=== PATIENT | male | born 1955 | race Caucasian/White ===

== ENCOUNTER 2019-05-16 21:57 | Inpatient (IN) | payer OTHER ==
[~2019-05-16] VITALS: Ht 172.7 cm; Wt 53.6 kg
--- NOTE | ~2019-05-16 | EEG ---
[facility] [place] [address] ELECTROENCEPHALOGRAM Name: MICHOACANO LI Room #: 362-P [facility] M.R.#: [id number] Admission: 05/17/19 Attend Phys: Jayla Hsu MD Discharge: Date of : 55 Report #: [id number] THIS REPORT FOR: //name// CC: Jayla Garza DATE OF SERVICE: 05/18/2019 This patient is being evaluated for the possibility of seizure. EEG was done by placing the electrode by standard 10-20 system of electrode placement. Both referential and sequential montages were used for recording. Background activity in this patient's EEG is about 8 Hz and 30 microvolt. It is intermixed with theta range slowing on both sides. Photic stimulation is unremarkable. The patient went to sleep and that is associated with bilateral slowing and vertex sharp waves. Throughout the record, no active epileptiform activity was noticed. IMPRESSION: This patient's EEG is intermixed with theta range slowing on both sides. That is a nonspecific abnormality, which can occur with encephalopathy, effect of psychotropic medication, dementia, etc. Clinical correlation is recommended. By: [id number] Hany Israel MD /nt
--- NOTE | ~2019-05-16 | EKG ---
[facility] [place] [address] ELECTROCARDIOGRAM REPORT Name: GUILLERMOMICHOACANO Room #: [facility] M.R.#: [id number] Admission: Attend Phys: Discharge: Date of : 55 Report #: [id number] THIS REPORT FOR: cc: Gustabo Montejo MD ~ THIS REPORT FOR: //name// [facility] ED Test Date: 2019-05-16 Test Time: 22:09:15 Pat Name: MICHOACANO LI Department: Room: Gender: M Mobile Ui/Ux Designer: matthew : 1955 Requested By: Matthew Lantigua Order Number: [id number] MD: Measurements Intervals [place] Rate: 90 P: 62 AK: 150 QRS: 53 QRSD: 150 T: 32 QT: 394 QTc: 482 Interpretive Statements Sinus rhythm Probable left atrial enlargement Right bundle branch block LVH by voltage Borderline prolonged QT interval No previous ECG available for comparison [email or web address] By: 08 08 Gustabo Montejo MD /EPI
[2019-05-16 22:21] VITALS: BP 168/94
[2019-05-16 22:54] LABS: HEMATOCRIT 47.3 % (42.0-52.0); HEMOGLOBIN 14.7 gm/dL (14.0-18.0); MCV 103.3 fL (80.0-100.0); PLATELET COUNT 178 thou/uL (150-400); RBC 4.58 mil/uL (4.50-6.00); RDW 15.3 % (10.5-14.5); WBC 22.1 thou/uL (4.0-11.0)
[2019-05-16 23:08] LABS: ALBUMIN 3.5 g/dL (3.4-5.0); CALCIUM 6.7 mg/dL (8.5-10.1); CREATININE 0.7 mg/dL (0.7-1.3); POTASSIUM 3.2 mmol/L (3.5-5.1); TOTAL BILIRUBIN 0.4 mg/dL (<0.1-1.0); TOTAL PROTEIN 6.1 g/dL (6.4-8.2)
[2019-05-16 23:09] LABS: URINE BILIRUBIN NEGATIVE (Negative); URINE BLOOD TRACE (Negative); URINE CLARITY CLEAR; URINE COLOR YELLOW; URINE GLUCOSE-RANDOM* NEGATIVE (Negative); URINE KETONES NEGATIVE (Negative); URINE LEUKOCYTES-REFLEX TRACE (Negative); URINE PROTEIN (DIPSTICK) TRACE (Negative); URINE SPECIFIC GRAVITY 1.025 (1.005-1.035); URINE UROBILINOGEN 0.2 E.U./dl (0.2-1.0)
[2019-05-16 23:13] LABS: URINE NITRITE-REFLEX POSITIVE (Negative)
[2019-05-16 23:16] LABS: PHOSPHORUS 2.9 mg/dL (2.5-4.9)
[2019-05-16 23:28] LABS: SALICYLATE 2.1 mg/dL (2.8-20.0)
[2019-05-16 23:52] LABS: HCO3 18.4 mmol/L (22.0-26.0); PCO2 33.3 mmHg (35.0-45.0); PO2 64.4 mmHg (80.0-100.0); pH 7.361 (7.360-7.450); sO2 92.1 % (92.0-98.0)
[2019-05-17] VITALS (8 sets, daily range): BP systolic 132–181; BP diastolic 71–106
[2019-05-17 00:03] LABS: CASTS None Seen /LPF (None Seen); MUCUS 0-3 Light strn/LPF (None Seen); SQUAMOUS None Seen /LPF (0-3); URINE RBC 0-2 Rare /HPF (0-2); URINE WBC-REFLEX 6-15 Few /HPF (0-5)
[2019-05-17 00:04] LABS: BACTERIA-REFLEX >30 Many /HPF (None Seen); CRYSTALS None Seen /LPF (None Seen)
[2019-05-17 00:23] LABS: ABSOLUTE NEUTROPHILS 17.7 thou/uL (1.4-8.2); MACROCYTES 1+
[2019-05-17] MEDS ORDERED: MELATONIN3 M1 PO (00:23)
[2019-05-17] MEDS ORDERED: ASA81BEC PO (00:23)
[2019-05-17] MEDS ORDERED: ATORVASTATIN CA80 MG PO (00:24)
[2019-05-17] MEDS ORDERED: BUSPIRONE HCL7.5 MG PO (00:24)
[2019-05-17] MEDS ORDERED: CLONIDINE HCL0.1 MG PO (00:25)
[2019-05-17] MEDS ORDERED: SUPER THERAVIT1 EACH PO (00:25)
[2019-05-17] MEDS ORDERED: KEPPRA XR750 MG PO (00:25)
[2019-05-17] MEDS ORDERED: FOLIC ACID1 MG PO (00:25)
[2019-05-17] MEDS ORDERED: SALONPAS PATCH1 EAC1 TOP (00:26)
[2019-05-17] MEDS ORDERED: OXYBUTYNIN 5 MG5 M2 PO (00:26)
[2019-05-17] MEDS ORDERED: FLOMAX0.4 MG PO (00:27)
[2019-05-17] MEDS ORDERED: BENADRYL25 MG PO (01:14)
[2019-05-17] MEDS ORDERED: COLACE100 MG PO (01:14)
[2019-05-17] MEDS ORDERED: BUTALB-APAP-CA1 EACH PO (01:15)
[2019-05-17] MEDS ORDERED: IBU400 MG PO (01:16)
--- NOTE | 2019-05-17 02:30 | NUR ---
EKG DONE IN ER HAND DELIVERED BY MYSELF WHEN PATIENT TRANSFERRED TO [facility]. KEYS, CELLPHONE, COWBOY BOOTS, ANY OTHER POSSESSIONS WITH PATIENT IN ER ALSO SENT TO FLOOR. BHARGAVI JAQUEZ RECEIVED REPORT.
[2019-05-17 03:19] LABS: FOLIC ACID > 100.0 ng/mL (8.6-58.9)
--- NOTE | 2019-05-17 04:25 | NUR ---
Admission history and assessments completed. Care plan initiated. IVFluids infusing. Fentanyl for leg pain with relief. Lorazepam per ALEISHA.
--- NOTE | 2019-05-17 05:43 | NUR ---
Patient sedated oral meds not given.
--- NOTE | 2019-05-17 19:32 | NUR ---
pt admitted from ER for seizures and ETOH abuse at 05/16, pt is cofused and agitation at time, PT has iv Lorazepam 2mg q2-4hr per CIWA scores 7-10 , pt has kcl 20eqm/100ml x2 dose for K+3.2 per potocol, RN have reported to next shift to keep eye on pt, pt does not have seizure activities today. but pt is high fall risk .
--- NOTE | 2019-05-18 03:34 | NUR ---
Patient making slow progress towards outcome goals. Patient alert enough to take some oral medication, refused some. With periods of restless, attempting to get out of bed, states he wants to go home. High fall risks, fall and seizure precautions in plaace. Poor oral intake. IVfluids infusing. Good urine output. CIWA 5-11, medicated with Lorazepam with some relief.
[2019-05-18 04:09] VITALS: BP 142/78
[2019-05-18 05:30] LABS: HEMATOCRIT 41.4 % (42.0-52.0); HEMOGLOBIN 13.9 gm/dL (14.0-18.0); MCH 32.5 pg (26.0-34.0); MCHC 33.5 g/dL (28.0-37.0); RBC 4.28 mil/uL (4.50-6.00); RDW 14.4 % (10.5-14.5); WBC 9.9 thou/uL (4.0-11.0)
[2019-05-18 05:32] LABS: MCV 96.9 fL (80.0-100.0)
[2019-05-18 05:44] LABS: CALCIUM 8.6 mg/dL (8.5-10.1); CREATININE 0.6 mg/dL (0.7-1.3); POTASSIUM 3.4 mmol/L (3.5-5.1)
[2019-05-18 08:05] VITALS: BP 161/93
[2019-05-18 12:14] VITALS: BP 192/113
[2019-05-18 13:00] VITALS: BP 158/89
--- NOTE | 2019-05-18 15:55 | NUR ---
INITIAL ASSESSMENT: MEMO reviewed chart and spoke with nursing and attending physician. Pt was admitted from [facility] due to seizures. Pt with noted hx of ETOH Abuse. Pt listed as Patient Pay. MEMO contacted [facility] liaison, who provided [place] number. Face Sheet updated on chart. MEMO met with pt at bedside. Pt unable to answer SW questions. Seizure precautions in place. Neuro consulted. SW to follow up with pt at a later time. MEMO is following to assist as needed with discharge planning.
[2019-05-18 16:43] VITALS: BP 142/88
--- NOTE | 2019-05-18 19:27 | NUR ---
PT is A&OX2 (person and place), pt is sleeping at most of time today, pt's o2 was off last night, pt denies SOB and N/V , But pt refused to drink and eat , pt is continuing IV NS @ 125ML/HR, PT'S CIWA assessemnet scores are 2-5, no medication needs, pt's vs and o2sat are stable at this time.no seizures activiters today.
[2019-05-18 20:00] VITALS: BP 147/86
[2019-05-19 04:15] VITALS: BP 130/70
[2019-05-19 06:21] LABS: CALCIUM 8.4 mg/dL (8.5-10.1); CREATININE 0.6 mg/dL (0.7-1.3); MAGNESIUM 1.9 mg/dL (1.8-2.4); POTASSIUM 3.8 mmol/L (3.5-5.1)
--- NOTE | 2019-05-19 07:21 | NUR ---
PT MAKING PROGRESS TOWARDS GOALS. PT CALM AND COOPERATIVE, SLEPT MUCH OF THE NIGHT. STATES HE FEELS BETTER, LIKE HE IS "BACK TO NORMAL." PT HOPING TO BE ABLE TO EAT TODAY AND TO BE ABLE TO GO HOME. NO SEIZURE ACTIVITY NOTED.
[2019-05-19 07:41] VITALS: BP 156/106
[2019-05-19] MEDS ORDERED: CIPRO500 M1 PO (10:16)
[2019-05-19 11:34] VITALS: BP 153/91
--- NOTE | 2019-05-19 13:25 | NUR ---
DISCHARGE ORDERS COMPLETED. PATIENT DISCHARGING TO [facility]. DISCHARGE ORDERS AND SUMMARY FAXED TO [facility] LIAISON. [employer] TRANSPORT ARRANGED PER TATY, 1700 HOURS. CHART COPY COMPLETED PER INSIGHTS STRATEGIST. UNIT NOTIFIED OF TRANSPORTATION TIME.
--- NOTE | 2019-05-19 16:14 | NUR ---
DISCHARGE NOTE: SW reviewed chart and spoke with nursing and attending physician. Pt is medically stable to return to [facility] today. SW met with pt at bedside to discuss discharge plan. Pt is alert/orientated and is agreeable with discharge. SW offered to call family to notify of discharge. Pt states he already notified his girlfriend. Wheelchair van transportation scheduled for 1700 per facility's arrangements. Nursing to call report. Chart copy requested. digital media planner faxed finalized discharge orders/summary to facility. No additional SW needs identified at this time, but is available to assist should needs arise.
--- NOTE | 2019-05-19 16:49 | NUR ---
Assumed care approx. 0700 this AM. Pt recieved discharge orders. Barros cath dc'd. No seizure-like activity noted this shift. Seizure and fall precautions were in place. Report called to Lisandra at [facility]. IV and tele dc'd. Pt picked up by transportation set up by case management and left [address] approx. 1645 with all belongings and chart copy.
== END 2019-05-19 16:54 | DRG 100 ==
LOC: ER 21:57 → 3W 05-17 00:22 → EROBS 05-17 00:22 → 3W 05-17 02:11
PROVIDERS: Emergency Medicine; Hospitalist; Physician Assistant; ADMIT Hospitalist
DX: G40.909 Epilepsy, unspecified, not intractable, without status epilepticus (principal); G92 Toxic encephalopathy; E87.2 Acidosis; N39.0 Urinary tract infection, site not specified; F10.10 Alcohol abuse, uncomplicated; E83.51 Hypocalcemia; E87.6 Hypokalemia; D72.829 Elevated white blood cell count, unspecified; S01.512A Laceration without foreign body of oral cavity, initial encounter; F32.9 Major depressive disorder, single episode, unspecified; N40.1 Benign prostatic hyperplasia with lower urinary tract symptoms; R33.8 Other retention of urine; Z79.82 Long term (current) use of aspirin; Z79.899 Other long term (current) drug therapy; Z23 Encounter for immunization; X58.XXXA Exposure to other specified factors, initial encounter; Y93.89 Activity, other specified; Y92.89 Other specified places as the place of occurrence of the external cause; Y99.8 Other external cause status
CPT/HCPCS: 10879